=== PATIENT | female | born 1970 | race Caucasian/White ===

== ENCOUNTER 2021-02-17 22:26 | Emergency (ER) | payer BC, OTHER ==
[~2021-02-17] VITALS: Ht 160 cm; Wt 145.0 kg
[~2021-02-17 22:26] MED LIST: ACHD5005 PO; DOCU100C37 PO; ESTR2TAB PO; IBUP-1780 PO; OXYC-556 PO; OXYC1TAB12 PO
[2021-02-17 22:45] LABS: BASOPHILS # (AUTO) 0.1 10^3/uL (0.0-0.1); BASOPHILS % (AUTO) 0 % (0-10); EOSINOPHILS % (AUTO) 0 % (0-10); HEMATOCRIT 52 % (35-52); HEMOGLOBIN 17.4 g/dL (11.5-16.0); LYMPHOCYTES # (AUTO) 1.7 10^3/uL (1.0-4.0); LYMPHOCYTES % (AUTO) 7 % (12-44); MEAN CORPUSCULAR HEMOGLOBIN 29 pg (25-34); MEAN CORPUSCULAR HGB CONC 34 g/dL (32-36); MEAN CORPUSCULAR VOLUME 86 fL (80-99); MEAN PLATELET VOLUME 9.5 fL (9.0-12.2); MONOCYTES # (AUTO) 1.3 10^3/uL (0.0-1.0); MONOCYTES % (AUTO) 6 % (0-12); NEUTROPHILS # (AUTO) 19.9 10^3/uL (1.8-7.8); NEUTROPHILS % (AUTO) 85 % (42-75); PLATELET COUNT 466 10^3/uL (130-400); WHITE BLOOD COUNT 23.5 10^3/uL (4.3-11.0)
[2021-02-17 22:56] LABS: ALBUMIN 4.1 GM/DL (3.2-4.5); CHLORIDE 105 MMOL/L (98-107); POTASSIUM 4.8 MMOL/L (3.6-5.0); SODIUM 138 MMOL/L (135-145)
[2021-02-17 22:57] LABS: CALCIUM 9.7 MG/DL (8.5-10.1)
[2021-02-17 22:58] LABS: GLUCOSE 129 MG/DL (70-105); TOTAL PROTEIN 7.3 GM/DL (6.4-8.2)
[2021-02-17 22:59] LABS: CARBON DIOXIDE 16 MMOL/L (21-32)
[2021-02-17 23:00] LABS: BILIRUBIN,TOTAL 0.4 MG/DL (0.1-1.0)
[2021-02-17] MEDS ORDERED: fentaNYL INJ 100 MCG/2 ML AMP IVP ONE (23:00)
[2021-02-17] MEDS ORDERED: ONDANSETRON 4 MG/2 ML (SDV) Z0FRAN IVP ONE (23:00)
[2021-02-17] MEDS ORDERED: LACTATED RINGERS 1,000 ML IV ONE (23:00)
[2021-02-17 23:02] LABS: ALKALINE PHOSPHATASE 69 U/L (40-136); CREATININE SERUM 0.94 MG/DL (0.60-1.30); GFR ESTIMATED > 60; LYMPHOCYTES % (MANUAL) 8 %; MONOCYTES % (MANUAL) 5 %; NEUTROPHILS % (MANUAL) 87 %
[2021-02-17 23:02] LABS: BILIRUBIN,URINE NEGATIVE (NEGATIVE); CLARITY,URINE CLEAR; COLOR,URINE YELLOW; GLUCOSE, URINE (UA) NEGATIVE (NEGATIVE); KETONES,URINE NEGATIVE (NEGATIVE); LEUKOCYTE ESTERASE ,URINE NEGATIVE (NEGATIVE); NITRITE,URINE NEGATIVE (NEGATIVE); PROTEIN,URINE NEGATIVE (NEGATIVE)
[2021-02-17 23:03] LABS: BUN/CREATININE RATIO 23; RBC MORPH NORMAL
[2021-02-17 23:05] LABS: ALANINE AMINOTRANSFERASE 75 U/L (0-55); LIPASE 52 U/L (8-78)
--- NOTE | 2021-02-17 23:15 | ED Abdominal Pain ---
General Chief Complaint: Abdominal/GI Problems Stated Complaint: ABD PAIN Nursing Triage Note: c/o abdomen pain x 3 weeks. reports has been to chiropractor and pcp without relief. Sepsis Screen: No Definite Risk Source of Information: Patient Exam Limitations: No Limitations (ANA[employer]AN[employer] STUDENT) History of Present Illness Date Seen by Provider: February 17, 2021 Time Seen by Provider: 22:40 Initial Comments Pt presents to ED via POV with at bedside with complaint of abd pain, nausea, vomiting. She states that 3 weeks ago she was having mid-upper back pain and was treated with Soma and Prednisone. She sees Dr. Muñiz from [place]. About a week and a half ago she says that her epigastric abd pain began and had issues with constipation; she took multiple doses of Miralax until she was having frequent watery bowel movements, and today she says that they are still loose but not watery. Her abd pain has gotten worse over the past week and she says that she has seen Dr. Muñiz twice and a chiropractor 3 times in the past 3 weeks. She rates it at 6-8/10 at rest, describes it as a fullness/pressure in her epigastric area, and she described an episode of emesis as tasting like "fecal matter". She has been able to eat/drink without vomiting. She has had a cholecystectomy 1 year ago and total hysterectomy 3 years ago. She denies symptoms of chest pain, SOB, dysuria, fevers/chills. Timing/Duration: Getting Worse (abd pain onset 1.5wks ago ) Severity/Quality: Moderate, Full (fullness/pressure epigastric) Location: Epigastric Radiation: No Radiation Activities at Onset: None Modifying Factors: Improves With Palpation, Improves With Vomiting Associated Symptoms: Back Pain (3 week history of mid-upper back pain); No Chest Pain, No Diaphoresis, No Fever/Chills, No Headache; Nausea/Vomiting; No Shortness of Air ([employer] STUDENT) Allergies and Home Medications Allergies Coded Allergies: No Known Drug Allergies (Unverified , 07/16/15) Home Medications Docusate Sodium 100 Mg Capsule, 100 MG PO BID Prescribed by: MAURICIO FAUSTIN on 04/23/16 0806 Estradiol 2 Mg Tablet, 2 MG PO DAILY Prescribed by: MAURICIO FAUSTIN on 04/23/16805 Hydrocodone/Acetaminophen 1 Each Tablet, 1 TAB PO Q4H PRN for PAIN-MODERATE (5- 7) Prescribed by: PAOLO SANFORD on 02/18/21340 Ibuprofen 800 Mg Tablet, 800 MG PO Q6HR Prescribed by: MAURICIO FAUSTIN on 04/23/16805 Ondansetron 8 Mg Tab.rapdis, 8 MG PO Q6H PRN for NAUSEA-1ST LINE Prescribed by: PAOLO SANFORD on 02/18/21340 Oxycodone HCl/Acetaminophen 1 Each Tablet, 1-2 TAB PO Q4H PRN for PAIN Prescribed by: MAURICIO FAUSTIN on 04/23/16805 Pantoprazole Sodium 20 Mg Tablet.dr, 20 MG PO BID Prescribed by: PAOLO SANFORD on 02/18/21340 Sucralfate 1 Gm Tablet, 1 GM PO ACHS Chew tablet to a slurry and then swallow Prescribed by: PAOLO SANFORD on 02/18/21340 Patient Home Medication List Home Medication List Reviewed: Yes ([employer] STUDENT) Review of Systems Review of Systems Constitutional: No chills, No fever EENTM: No Eye Pain, No Ear Pain, No Mouth Pain Respiratory: Denies Cough, Denies Shortness of Air Cardiovascular: Denies Chest Pain, Denies Edema, Denies Lightheadedness Gastrointestinal: Abdominal Pain (epigastric), Diarrhea, Nausea, Vomiting Genitourinary: Denies Burning, Denies Discharge, Denies Frequency Musculoskeletal: No back pain, No joint pain, No joint swelling, No muscle stiffness Skin: No change in color, No lesions, No rash Psychiatric/Neurological: Denies Headache, Denies Numbness, Denies Paresthesia, Denies Tingling, Denies Weakness ([employer] STUDENT) All Other Systems Reviewed Negative Unless Noted: Yes (ANABEL FRANCOIS) Past Tgbljtb-[id number]-Vdbdmv Hx Past Med/Social Hx: Reviewed Nursing Past Med/Soc Hx (ANABEL FRANCOIS) Patient Social History Alcohol Use: Denies Use Recent Infectious Disease Expo: No Recent Hopitalizations: No (ANABEL FRANCOIS) Seasonal Allergies Seasonal Allergies: Yes (ALESSANDRO,ANABEL MED STUDENT) Past Medical History Surgeries: Yes (RIGHT KNEE SCOPE, left breast lumpectomy, D&C) Hysterectomy Asthma Cardiac: No Neurological: No Reproductive Disorders: Yes Female 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 Sexually Transmitted Disease: No HIV/AIDS: No Gastrointestinal: No Musculoskeletal: No Endocrine: No Loss of Vision: Bilateral Hearing Impairment: Denies Cancer: No Psychosocial: No Integumentary: No Blood Disorders: No Adverse Reaction/Blood Tranf: No (ANA[employer] STUDENT) Family Medical History Alcoholism 19 FATHER Cardiovascular disease grandparents Diabetes mellitus grandparents FH: cancer 19 FATHER (skin) 19 MOTHER (skin) grandparents (cervical) Respiratory disorder 19 FATHER Physical Exam Vital Signs Vital Signs - First Documented 02/17/21 02/18/21 22:31 03:53 Temp 36.4 Pulse 66 Resp 18 B/P (MAP) 178/117 (137) Pulse Ox 94 O2 Delivery Room Air (PAOLO SANFORD) Vital Signs Capillary Refill : Less Than 3 Seconds (ANA[employer] STUDENT) Height/Weight/BMI Height: 5'3" Weight: 280lbs. 0.0oz. [id number]; 56.00 BMI Method:Stated General Appearance: WD/WN, mild distress, obese HEENT: PERRL/EOMI, normal ENT inspection, pharynx normal Neck: non-tender, full range of motion, supple, normal inspection Respiratory: chest non-tender, lungs clear, normal breath sounds, no respiratory distress, no accessory muscle use Cardiovascular: normal peripheral pulses, regular rate, rhythm, no murmur Peripheral Pulses: 2+ Dorsalis Pedis (R), 2+ Left Dors-Pedis (L), 2+ Radial Pulses (R), 2+ Radial Pulses (L) Gastrointestinal: normal bowel sounds, soft; No distended, No guarding; tenderness (mild epigastric, negative McBurney point tenderness, Rovsing sign) Rectal: deferred Extremities: normal range of motion, non-tender, normal inspection Back: normal inspection, other (pain/tenderness to mid-upper back between L scapula and spine) Neurologic/Psychiatric: no motor/sensory deficits, alert, normal mood/affect, oriented x 3 Skin: normal color, warm/dry Lymphatic: no adenopathy (ANA[employer] STUDENT) Progress/Results/Core Measures Results/Orders Lab Results Laboratory Tests Test 02/17/21 22:35 02/17/21 22:50 Range/Units White Blood Count 23.5 H 4.3-11.0 10^3/uL Red Blood Count 6.01 H 3.80-5.11 10^6/uL Hemoglobin 17.4 H 11.5-16.0 g/dL Hematocrit 52 35-52 % Mean Corpuscular Volume 86 80-99 fL Mean Corpuscular Hemoglobin 29 25-34 pg Mean Corpuscular Hemoglobin Concent 34 32-36 g/dL Red Cell Distribution Width 14.2 10.0-14.5 % Platelet Count 466 H 130-400 10^3/uL Mean Platelet Volume 9.5 9.0-12.2 fL Immature Granulocyte % (Auto) 2 % Neutrophils (%) (Auto) 85 H 42-75 % Lymphocytes (%) (Auto) 7 L 12-44 % Monocytes (%) (Auto) 6 0-12 % Eosinophils (%) (Auto) 0 0-10 % Basophils (%) (Auto) 0 0-10 % Neutrophils # (Auto) 19.9 H 1.8-7.8 10^3/uL Lymphocytes # (Auto) 1.7 1.0-4.0 10^3/uL Monocytes # (Auto) 1.3 H 0.0-1.0 10^3/uL Eosinophils # (Auto) 0.0 0.0-0.3 10^3/uL Basophils # (Auto) 0.1 0.0-0.1 10^3/uL Immature Granulocyte # (Auto) 0.5 H 0.0-0.1 10^3/uL Neutrophils % (Manual) 87 % Lymphocytes % (Manual) 8 % Monocytes % (Manual) 5 % Blood Morphology Comment NORMAL Sodium Level 138 135-145 MMOL/L Potassium Level 4.8 3.6-5.0 MMOL/L Chloride Level 105 98-107 MMOL/L Carbon Dioxide Level 16 L 21-32 MMOL/L Anion Gap 17 H 5-14 MMOL/L Blood Urea Nitrogen 22 H 7-18 MG/DL Creatinine 0.94 0.60-1.30 MG/DL Estimat Glomerular Filtration Rate > 60 BUN/Creatinine Ratio 23 Glucose Level 129 H 70-105 MG/DL Calcium Level 9.7 8.5-10.1 MG/DL Corrected Calcium 9.6 8.5-10.1 MG/DL Total Bilirubin 0.4 0.1-1.0 MG/DL Aspartate Amino Transf (AST/SGOT) 23 5-34 U/L Alanine Aminotransferase (ALT/SGPT) 75 H 0-55 U/L Alkaline Phosphatase 69 40-136 U/L Total Protein 7.3 6.4-8.2 GM/DL Albumin 4.1 3.2-4.5 GM/DL Lipase 52 8-78 U/L Urine Color YELLOW Urine Clarity CLEAR Urine pH 7.0 5-9 Urine Specific [place] 1.015 L 1.016-1.022 Urine Protein NEGATIVE NEGATIVE Urine Glucose (UA) NEGATIVE NEGATIVE Urine Ketones NEGATIVE NEGATIVE Urine Nitrite NEGATIVE NEGATIVE Urine Bilirubin NEGATIVE NEGATIVE Urine Urobilinogen 0.2 < = 1.0 MG/DL Urine Leukocyte Esterase NEGATIVE NEGATIVE Urine RBC (Auto) TRACE-I NEGATIVE Urine RBC 0-2 /HPF Urine WBC NONE /HPF Urine Squamous Epithelial Cells 2-5 /HPF Urine Crystals NONE /LPF Urine Bacteria NEGATIVE /HPF Urine Casts NONE /LPF Urine Mucus SMALL H /LPF Urine Culture Indicated NO (PAOLO SANFORD) My Orders Orders - PAOLO SANFORD Ua Culture If Indicated (02/17/21 22:33) Cbc With Automated Diff (02/17/21 22:33) Comprehensive Metabolic Panel (02/17/21 22:33) Lipase (02/17/21 22:33) Manual Differential (02/17/21 22:35) Fentanyl Inj (Sublimaze Injection) (02/17/21 23:00) Ed Iv/Invasive Line Start (02/17/21 22:52) Lactated Ringers (Lr 1000 Ml Iv Solution (02/17/21 23:00) Ct Abdomen/Pelvis W (02/17/21 22:52) Ondansetron Injection (Zofran Injectio (02/17/21 23:00) Iohexol Injection (Omnipaque 350 Mg/Ml 1 (02/17/21 23:30) Received Contrast (Hold Metformin- Contr (02/17/21 23:30) Sodium Chloride Flush (Catheter Flush Sy (02/17/21 23:30) Ns (Ivpb) (Sodium Chloride 0.9% Ivpb Bag (02/17/21 23:30) Pantoprazole Injection (Protonix Injecti (02/17/21 23:30) Lidocaine 2% Viscous 15 Ml (Xylocaine Vi (02/18/21 02:15) Famotidine Tablet (Pepcid Tablet) (02/18/21 02:13) Antacid Suspension (Mylanta Suspension (02/18/21 02:15) Rx-Ondansetron Po (Rx-Zofran Po) (02/18/21 03:43) Rx-Hydrocodone/Apap 5-325 Mg (Rx-Vicodin (02/18/21 03:45) (PAOLO SANFORD) Medications Given in ED Current Medications Medications Dose Ordered Sig/Jose Route Start Time Stop Time Status Last Admin Dose Admin Acetaminophen/ Hydrocodone Bitart 1 ea Q4H PRN PO 02/18/21 03:45 02/18/21 03:52 DC 02/18/21 03:47 1 EA Al Hydrox/Mg Hydrox/Simethicone 30 ml ONCE ONCE PO 02/18/21 02:15 02/18/21 02:16 DC 02/18/21 02:43 30 ML Fentanyl Citrate 50 mcg ONCE ONCE IVP 02/17/21 23:00 02/17/21 23:02 DC 02/17/21 22:57 50 MCG Iohexol 100 ml ONCE ONCE IV 02/17/21 23:30 02/17/21 23:31 DC 02/18/21 00:04 100 ML Lactated Ringer's 1,000 ml @ 0 mls/hr Q0M ONCE IV 02/17/21 23:00 02/17/21 23:02 DC 02/17/21 22:57 0 MLS/HR Lidocaine HCl 15 ml ONCE ONCE PO 02/18/21 02:15 02/18/21 02:16 DC 02/18/21 02:43 15 ML Ondansetron HCl 4 mg ONCE ONCE IVP 02/17/21 23:00 02/17/21 23:02 DC 02/17/21 22:57 4 MG Pantoprazole 40 mg ONCE ONCE IV 02/17/21 23:30 02/17/21 23:31 DC 02/18/21 00:13 40 MG Sodium Chloride 10 ml NEEDED PRN IV 02/17/21 23:30 02/18/21 03:52 DC 6/1/21 00:04 10 ML Sodium Chloride 100 ml ONCE ONCE IV 02/17/21 23:30 02/17/21 23:31 DC 02/18/21 00:04 80 ML (PAOLO SANFORD) Vital Signs/I&O 02/17/21 02/18/21 22:31 03:53 Temp 36.4 36.2 Pulse 66 55 Resp 18 16 B/P (MAP) 178/117 (137) 153/99 (137) Pulse Ox 94 99 O2 Delivery Room Air (PAOLO SANFORD) Blood Pressure Mean: 137 Progress Progress Note #1: Time: 23:30 Progress Note I attest that I saw this patient alongside the medical student and agree with his documented history, physical exam and review of systems except as otherwise noted. Patient is having some nausea and vomiting which was improved with 4 of Zofran IV, abdominal pain which is improved with 50 mcg of IV fentanyl that started after she began an aggressive treatment course for musculoskeletal likely origin back pain in the past week. She has been on a couple courses of steroids 2 injections of steroids plus Toradol and ibuprofen [id number]. She relates that when she saw the chiropractor he popped her T4 rib back in place for her and she had immediate relief of her back pain symptoms except for some aching pain in her back. She says the soma also made her nauseated. Be reasonable to do CT to rule out an obstruction however since it she is having some small loose stools. She has had 2 normal sized bowel movement since she started taking MiraLAX on of last week, 5 days ago. Her elevated white count is likely due to her ongoing steroid use. Progress Note #2: Time: 02:16 Progress Note Patient states the hemangioma is unknown issue. She still having about a 4 out of 10 pain certainly give her a GI cocktail as I suspect she has steroid and NSAID induced gastritis. We have asked her to stop taking the steroids and the NSAIDs. Pepcid 20 mg p.o. We did talk about an observation stay if she is not having significant relief of her symptoms. Progress Note #3: Time: 03:19 Progress Note Patient says she did receive some significant improvement in her pain but her nausea started to come back. We are going to send her home with a take-home pack of pain medicine and nausea medicine to get her through the night and have her follow-up with Dr. Baker, general surgery to discuss endoscopy if necessary for presumed NSAID and steroid induced gastritis related to a musculoskeletal complaint in her back. (PAOLO SANFORD) Diagnostic Imaging Diagonstic Imaging: CT Plain Films/CT/US/NM/MRI: abdomen, pelvis Comments No acute abnormality. 4.3 cm probable hemangioma right lobe of the liver. [facility] [place] NAME: ASIF GRAVES [facility] REC#: [id number] PT STATUS: DEP ER : 1970 PHYSICIAN: PAOLO SANFORD MD ADMIT DATE: 02/17/21/ER Draft Date of Exam:02/17/21 CT ABDOMEN/PELVIS W CT ABDOMEN/PELVIS W TECHNIQUE: Multiple contiguous axial images were obtained through the abdomen and pelvis after administration of intravenous contrast. All CT scans use one or more of the following dose optimizing techniques: automated exposure control, MA and/or KvP adjustment based on patient size and exam type or iterative reconstruction. INDICATION: Abdominal pain COMPARISON: None available. FINDINGS: Lower chest: The lung bases are clear. No pericardial or pleural effusion. Peritoneum: No free intraperitoneal air or fluid. Liver and biliary system: Diffuse hypoattenuation liver is most indicative of hepatic steatosis. There is a 3.0 x 3.7 cm hypodensity with peripheral discontinuous enhancement most compatible with a meningioma located in the right hepatic lobe. Cholecystectomy. No pathologic biliary duct dilatation. Spleen and Pancreas: Spleen is normal. The pancreas enhances normally without mass lesion or peripancreatic inflammatory changes. Adrenals: Normal. tract: The kidneys enhance normally without suspicious mass or obstruction. Urinary bladder is decompressed. No renal or ureteral stones. Status post hysterectomy. No adnexal mass. GI tract: Stomach is decompressed. No bowel obstruction. No pericolonic inflammatory changes. Normal appendix. Moderate volume of colonic stool. Vasculature and Lymph nodes: Normal caliber aorta. No abdominal or pelvic lymphadenopathy. Musculoskeletal: No concerning osseous lesion. IMPRESSION: 1. No acute intraparenchymal process. 2. Right-sided liver mass is a benign hemangioma that requires no additional follow-up workup. 3. Findings are in agreement with the preliminary report. Dictated on workstation # [id number] Dict: 02/18/21 0644 Trans: 02/18/21 0652 [facility] [id number] Interpreted by: JYOTHI BLAND MD Electronically signed by: Reviewed: Reviewed [place] Study, Reviewed by Me (PAOLO SANFORD) Departure Impression Primary Impression: Gastritis and duodenitis Additional Impression: Thoracic back pain Qualified Codes: M54.6 - Pain in thoracic spine Disposition: 01 HOME, SELF-CARE Condition: Stable Departure-Patient Inst. Decision time for Depature: 03:20 (PAOLO SANFORD) Referrals: MAURICIO BETTS MD (PCP) Primary Care Physician JOLIE,LOCAL PHYSICIAN (Family) Primary Care Physician YESENIA BAKER DO Patient Instructions: Gastritis (DC) Add. Discharge Instructions: Drink plenty of fluids. Eat a bland diet. Avoid foods high in acid or spicy foods. This morning call Dr. Baker, general surgery and request follow-up appointment for appropriate work-up of your gastritis. Stop taking any NSAIDs such as ibuprofen, Advil, Aleve, naproxen etc. Tylenol is okay. Stop taking steroids. Tums, Mylanta, Maalox, Rolaids etc. as necessary for belly pain. Zofran 8 mg every 6 hours as necessary for nausea and/or vomiting. Protonix 20 mg twice a day for the next month to reduce your acid. Carafate half an hour before meals and at bedtime for the next 2 weeks to protect your stomach lining while it heals. If you are having significant, intractable pain keeping you from functioning then you may take 1 tablet of hydrocodone every 6 hours as necessary. Return to ER for fever or worsening intractable symptoms. All discharge instructions reviewed with patient and/or family. Voiced understanding. Scripts Hydrocodone/Acetaminophen (Hydrocodone-Acetamin 5-325 mg) 1 Each Tablet 1 TAB PO Q4H PRN for PAIN-MODERATE (5-7), #12 TAB 0 Refills Prov: PAOLO SANFORD 02/18/21 Pantoprazole Sodium (Protonix) 20 Mg Tablet.dr 20 MG PO BID for 30 Days, #60 TAB 0 Refills Prov: PAOLO SANFORD 02/18/21 Ondansetron (Ondansetron Odt) 8 Mg Tab.rapdis 8 MG PO Q6H PRN for NAUSEA-1ST LINE, #20 TAB 0 Refills Prov: PAOLO SANFORD 02/18/21 Sucralfate (Sucralfate) 1 Gm Tablet 1 GM PO ACHS for 14 Days, #56 TAB 1 Refill Chew tablet to a slurry and then swallow Prov: PAOLO SANFORD 02/18/21 Work/School Note: Work Release Form Date Seen in the Emergency Department: Feb 18, 2021 Return to Work: Feb 20, 2021 Restrictions: No Restrictions Copy Copies To 1: YESENIA BAKER JOHNNY MED STUDENT February 17, 2021 23:15 PAOLO SANFORD February 17, 2021 23:32
[2021-02-17 23:22] LABS: BACTERIA,URINE NEGATIVE /HPF; RBC,URINE 0-2 /HPF
[2021-02-17] MEDS ORDERED: HOLD METFORMIN - RECEIVED CONTRAST 20 ML VIAL IV SCH (23:30)
[2021-02-17] MEDS ORDERED: CATHETER FLUSH 10 ML SYR IV PRN (23:30)
[2021-02-17] MEDS ORDERED: IOHEXOL 350 MG/ML 100 ML (OMNIPAQUE 350) VIAL IV ONE (23:30)
[2021-02-17] MEDS ORDERED: PANTOPRAZOLE 40 MG (PROTONIX) VIAL IV ONE (23:30)
[2021-02-17] MEDS ORDERED: NS 100 ML (IVPB) BAG IV ONE (23:30)
[2021-02-18] MEDS ORDERED: FAMOTIDINE 20 MG (PEPCID) TABLET PO STA (02:13)
[2021-02-18] MEDS ORDERED: LIDOCAINE 2% VISCOUS 15 ML UDC PO ONE (02:15)
[2021-02-18] MEDS ORDERED: ANTACID SUSP 30 ML UDC (MYLANTA) PO ONE (02:15)
[2021-02-18] MEDS ORDERED: SUCR1TAB PO (03:41)
[2021-02-18] MEDS ORDERED: PANT20TA2 PO (03:41)
[2021-02-18] MEDS ORDERED: ACHD5005 PO (03:41)
[2021-02-18] MEDS ORDERED: ONDA8TAB13 PO (03:41)
[2021-02-18] MEDS ORDERED: RX-ONDANSETRON 4 MG ODT (ZOFRAN) PPK #4 PO STA (03:43)
[2021-02-18 03:53] VITALS: BP 153/99
--- NOTE | 2021-02-18 06:52 | Diagnostic Imaging Report ---
CT ABDOMEN/PELVIS W TECHNIQUE: Multiple contiguous axial images were obtained through the abdomen and pelvis after administration of intravenous contrast. All CT scans use one or more of the following dose optimizing techniques: automated exposure control, MA and/or KvP adjustment based on patient size and exam type or iterative reconstruction. INDICATION: Abdominal pain COMPARISON: None available. FINDINGS: Lower chest: The lung bases are clear. No pericardial or pleural effusion. Peritoneum: No free intraperitoneal air or fluid. Liver and biliary system: Diffuse hypoattenuation liver is most indicative of hepatic steatosis. There is a 3.0 x 3.7 cm hypodensity with peripheral discontinuous enhancement most compatible with a meningioma located in the right hepatic lobe. Cholecystectomy. No pathologic biliary duct dilatation. Spleen and Pancreas: Spleen is normal. The pancreas enhances normally without mass lesion or peripancreatic inflammatory changes. Adrenals: Normal. tract: The kidneys enhance normally without suspicious mass or obstruction. Urinary bladder is decompressed. No renal or ureteral stones. Status post hysterectomy. No adnexal mass. GI tract: Stomach is decompressed. No bowel obstruction. No pericolonic inflammatory changes. Normal appendix. Moderate volume of colonic stool. Vasculature and Lymph nodes: Normal caliber aorta. No abdominal or pelvic lymphadenopathy. Musculoskeletal: No concerning osseous lesion. IMPRESSION: 1. No acute intraparenchymal process. 2. Right-sided liver mass is a benign hemangioma that requires no additional follow-up workup. 3. Findings are in agreement with the preliminary report. Dictated by: Dictated on workstation # [id number]
== END 2021-02-18 03:52 | disposition home or self-care (01) ==
LOC: EDUNIT# 22:26 → ER 22:28
DX: K29.70 Gastritis, unspecified, without bleeding (principal); K29.80 Duodenitis without bleeding; M54.6 Pain in thoracic spine; J45.909 Unspecified asthma, uncomplicated; E66.9 Obesity, unspecified; Z68.43 Body mass index [BMI] 50.0-59.9, adult; Z90.49 Acquired absence of other specified parts of digestive tract
CPT/HCPCS: 36415; 74177; 80053; 81000; 83690; 85007; 85027